=== PATIENT | female | born 1980 | race Caucasian/White ===

== ENCOUNTER 2021-09-08 17:58 | Inpatient (IN) ==
[2021-09-08 18:46] LABS: Basophils # 0.1 K/mcL (0.0-0.2); Basophils % 0.4 %; Eosinophils # 0.2 K/mcL (0.0-0.6); Eosinophils % 1.5 %; Hematocrit 44.6 % (35.3-44.9); Immature Granulocytes % 0.4 % (0-4); Lymphocytes # 2.4 K/mcL (0.6-4.6); Lymphocytes % 20.4 %; Mean Corpuscular HGB Conc 31.4 g/dL (31.6-35.5); Mean Corpuscular Hemoglobin 26.5 pg (28.0-33.3); Mean Corpuscular Volume 84.3 fL (83.0-100.0); Mean Platelet Volume 9.6 fL (9.4-12.4); Monocytes # 0.5 K/mcL (0.0-1.3); Monocytes % 4.4 %; Neutrophils # 8.5 K/mcL (1.6-8.9); Platelet Count 375 K/mcL (140-400); Red Blood Count 5.29 M/mcL (3.82-4.97); Red Cell Distribution Width 15.8 % (11.5-14.5); Segmented Neutrophils % 72.9 %; White Blood Count 11.7 K/mcL (4.3-11.1)
[2021-09-08 19:01] LABS: Bacteria,Urine Few per hpf (None-Few); Bilirubin,Urine Negative (Negative); Blood,Urine Trace (Negative); Clarity,Urine Clear (Clear); Color,Urine Colorless (Yellow); Glucose,Urine (UA) Normal (Normal); Ketones,Urine Negative (Negative); Leukocyte Esterase,Urine Negative (Negative); Nitrite,Urine Negative (Negative); PH,Urine 6.5 pH Units (5.0-8.0); Protein,Urine Negative (Neg-Trace); RBC,Urine 0-3 per hpf (0-3); Specific Gravity,Urine 1.009 (1.010-1.025); Squamous Epithelial Cell,Urine Few per hpf (None-Few); Urobilinogen,Urine Normal (Normal); WBC,Urine 0-3 per hpf (0-3)
[2021-09-08 19:25] LABS: Amphetamine Screen,Urine Negative ng/mL (Cutoff=1000); Barbiturate Screen,Urine Negative ng/mL (Cutoff=200)
[2021-09-08 19:26] LABS: Benzodiazepines Screen,Urine Negative ng/mL (Cutoff=300); Cannabinoid Screen,Urine Negative ng/mL (Cutoff = 50); Cocaine Screen,Urine Negative ng/mL (Cutoff= 300); Opiate Screen,Urine Negative ng/mL (Cutoff=300); Phencyclidine Screen,Urine Negative ng/mL (Cutoff=25)
[2021-09-08 19:34] LABS: Acetaminophen < 10 mcg/mL (10-20); BUN/Creatinine Ratio 4 (6-26); Blood Urea Nitrogen 3 mg/dL (6-20); Calcium 9.7 mg/dL (8.6-10.3); Carbon Dioxide 26 mEq/L (23-29); Chloride 102 mEq/L (98-107); Chol/HDL Ratio 4.1 (0-4.9); Cholesterol 212 mg/dL (< 200); Glucose 100 mg/dL (70-105); HDL Cholesterol 52 mg/dL (40-59); Osmolality,Calculated 281 (280-300); Potassium 3.2 mEq/L (3.5-5.1); Salicylate < 2.5 mg/dL (15.0-30.0); Sodium 137 mEq/L (136-145); eGFR For African Americans > 60 (> 60); eGFR For Non-African Americans > 60 (> 60)
[2021-09-08 19:35] LABS: Estimated Average Glucose 123 mg/dl; Hemoglobin A1C 5.9 %
[2021-09-08 20:43] LABS: Ethanol < 10 mg/dL (Less than 10); LDL Cholesterol,Calculated 131 mg/dL (< 100); Triglycerides 144 mg/dL (< 150)
[2021-09-09 00:20] LABS: Influenza A PCR Negative (Negative); Influenza B PCR Negative (Negative); Resp. Syncytial Virus PCR Negative (Negative); SARS-CoV-2 by PCR (In House) Negative (Negative)
[2021-09-09] MEDS ORDERED: *HR* LORazepam 2 MG/ML VIAL IM PRN (02:35)
[2021-09-09] MEDS ORDERED: haloperidoL 5 MG TABLET PO PRN (02:35)
[2021-09-09] MEDS ORDERED: hydrOXYzine pamoate 25 MG CAPSULE PO PRN (02:35)
[2021-09-09] MEDS ORDERED: Haloperidol Lactate 5 MG/ML VIAL IM PRN (02:35)
[2021-09-09] MEDS ORDERED: traZODone 50 MG TABLET PO PRN (02:35)
[2021-09-09] MEDS ORDERED: *HR* LORazepam 1 MG TABLET PO PRN (02:35)
[2021-09-09] MEDS: OXcarbazepine 150 MG TABLET PO SCH ×2 (09:58→20:49)
[2021-09-09] MEDS: hydrOXYzine pamoate 25 MG CAPSULE PO SCH ×2 (09:58→20:49)
[2021-09-09] MEDS: traZODone 50 MG TABLET PO SCH (09:58)
[2021-09-09] MEDS: Orphenadrine 100 MG TABLET.ER PO SCH (10:54)
[2021-09-09] MEDS: Nicotine 21 MG PATCH.TD24 TD SCH (10:54)
[2021-09-09] MEDS: ARIPiprazole 10 MG TABLET PO SCH (10:54)
[2021-09-09] MEDS: Furosemide 20 MG TABLET PO SCH (10:55)
[2021-09-09] MEDS ORDERED: MOM Conc 10 ML UD.LIQ PO PRN (11:28)
[2021-09-09] MEDS ORDERED: Mag Hydrox/Al Hydrox/Simeth 30 ML UDC PO PRN (11:28)
[2021-09-09] MEDS: *HR* Metformin 500 MG TABLET PO SCH (16:22)
[2021-09-09] MEDS ORDERED: Topiramate 25 MG TABLET PO SCH (21:00)
[2021-09-10] MEDS: *HR* Metformin 500 MG TABLET PO SCH (08:28)
[2021-09-10] MEDS: traZODone 50 MG TABLET PO SCH (08:28)
[2021-09-10] MEDS: OXcarbazepine 150 MG TABLET PO SCH (08:28)
[2021-09-10] MEDS: Furosemide 20 MG TABLET PO SCH (08:29)
[2021-09-10] MEDS: ARIPiprazole 10 MG TABLET PO SCH (08:29)
[2021-09-10] MEDS: Orphenadrine 100 MG TABLET.ER PO SCH (08:29)
[2021-09-10] MEDS: hydrOXYzine pamoate 25 MG CAPSULE PO SCH (08:29)
[2021-09-10] MEDS: Nicotine 21 MG PATCH.TD24 TD SCH (08:29)
[2021-09-10 09:04] VITALS: BP 121/86; PULSE 87; TEMP 98; O2SAT 95
== END 2021-09-10 13:05 | disposition home or self-care (01) | DRG 885 ==
LOC: EMEROOARM 17:58 → 1ANU 09-09 03:26
PROVIDERS: ADMIT Psychiatry & Neurology Psychiatry; ATTEND Psychiatry & Neurology Psychiatry

== ENCOUNTER 2021-10-26 18:37 | Observation (INO) ==
[2021-10-26] MEDS ORDERED: Ondansetron 4 MG/2 ML VIAL IVP PRN (21:13)
[2021-10-26] MEDS ORDERED: Naloxone 0.4 MG/ML INJ IVP PRN (21:13)
[2021-10-26] MEDS ORDERED: Nitroglycerin 0.4 MG TAB.SUBL SL PRN (21:15)
[2021-10-27] MEDS ORDERED: Perflutren Lipid Microsphere 1.3 ML in 0.9 % Sodium Chloride 8.7 ML IVP PRN (00:56)
[2021-10-27] MEDS ORDERED: Acetaminophen 325 MG TABLET PO PRN (00:58)
[2021-10-27] MEDS ORDERED: Furosemide 20 MG TABLET PO PRN (01:16)
[2021-10-27] MEDS ORDERED: hydrOXYzine pamoate 25 MG CAPSULE PO PRN (01:16)
[2021-10-27] MEDS ORDERED: Dextrose Gel 15 GM/37.5 ML TUBE PO PRN ×2 (02:03)
[2021-10-27] MEDS ORDERED: D5% in Water 1,000 ML IVC PRN (02:03)
[2021-10-27] MEDS ORDERED: *HR* Dextrose 50 % in Water (Syg) 50 ML SYRINGE IVP PRN (02:03)
[2021-10-27 02:44] LABS: Basophils % 0.5 %; Eosinophils # 0.2 K/mcL (0.0-0.6); Eosinophils % 2.9 %; Hematocrit 41.5 % (35.3-44.9); Hemoglobin 12.7 g/dL (11.5-15.4); Immature Granulocytes % 0.3 % (0-4); Lymphocytes # 2.5 K/mcL (0.6-4.6); Lymphocytes % 31.6 %; Mean Corpuscular HGB Conc 30.6 g/dL (31.6-35.5); Mean Corpuscular Hemoglobin 26.2 pg (28.0-33.3); Mean Corpuscular Volume 85.7 fL (83.0-100.0); Monocytes # 0.4 K/mcL (0.0-1.3); Monocytes % 5.4 %; Neutrophils # 4.7 K/mcL (1.6-8.9); Platelet Count 348 K/mcL (140-400); Red Blood Count 4.84 M/mcL (3.82-4.97); Red Cell Distribution Width 16.3 % (11.5-14.5); Segmented Neutrophils % 59.3 %; White Blood Count 7.9 K/mcL (4.3-11.1)
[2021-10-27 02:56] LABS: Cholesterol 149 mg/dL (< 200); HDL Cholesterol 49 mg/dL (40-59); LDL Cholesterol,Calculated 76 mg/dL (< 100); Magnesium 1.9 mg/dL (1.6-2.6); Triglycerides 120 mg/dL (< 150); Troponin I < 0.03 ng/mL (< 0.04)
[2021-10-27 02:57] LABS: Alanine Aminotransferase 11 Units/L (7-52); Albumin 3.8 g/dL (3.5-5.7); Albumin/Globulin Ratio 1.7 (1.1-2.2); Alkaline Phosphatase 89 Units/L (34-104); Aspartate Amino Transferase 9 Units/L (13-39); BUN/Creatinine Ratio 13 (6-26); Bilirubin,Total 0.3 mg/dL (0.3-1.0); Blood Urea Nitrogen 9 mg/dL (6-20); Calcium 9.2 mg/dL (8.6-10.3); Carbon Dioxide 26 mEq/L (23-29); Chloride 106 mEq/L (98-107); Globulin 2.2 g/dL (2.4-3.5); Glucose 97 mg/dL (70-105); Osmolality,Calculated 287 (280-300); Potassium 3.4 mEq/L (3.5-5.1); Sodium 139 mEq/L (136-145); eGFR For African Americans > 60 (> 60); eGFR For Non-African Americans > 60 (> 60)
[2021-10-27 03:26] LABS: Estimated Average Glucose 120 mg/dl; Hemoglobin A1C 5.8 %
[2021-10-27] MEDS: Insulin LISPRO 300 UNITS/3 ML VIAL SUBQ SCH ×2 (05:19→11:51)
[2021-10-27] MEDS ORDERED: *HR* Heparin 5,000 UNIT/ML VIAL SQ SCH (06:00)
[2021-10-27] MEDS ORDERED: Regadenoson 0.4 MG/5 ML SYRINGE IVP ONE (06:34)
[2021-10-27] MEDS ORDERED: Aspirin Enteric Coated 81 MG Tablet PO SCH (09:00)
[2021-10-27] MEDS ORDERED: Pregabalin 25 MG CAPSULE PO SCH (09:00)
[2021-10-27 11:46] VITALS: BP 135/86; PULSE 97; TEMP 97.8; O2SAT 96
[2021-10-27] MEDS ORDERED: Potassium Chloride Elixir 20 MEQ/15 ML UDC PO ONE (12:25)
== END 2021-10-27 14:29 | disposition home or self-care (01) ==
LOC: 3BNU → SUATTDRO 20:54
PROVIDERS: ADMIT Pharmacist; ATTEND Internal Medicine

== ENCOUNTER 2022-04-30 22:44 | Inpatient (IN) ==
[2022-05-01 17:50] LABS: Influenza A PCR Negative (Negative); Influenza B PCR Negative (Negative); Resp. Syncytial Virus PCR Negative (Negative); SARS-CoV-2 by PCR (In House) Negative (Negative)
[2022-05-01] MEDS ORDERED: haloperidoL 5 MG TABLET PO PRN (18:05)
[2022-05-01] MEDS ORDERED: *HR* LORazepam 1 MG TABLET PO PRN (18:05)
[2022-05-01] MEDS ORDERED: Haloperidol Lactate 5 MG/ML VIAL IM PRN (18:05)
[2022-05-01] MEDS ORDERED: *HR* LORazepam 2 MG/ML VIAL IM PRN (18:05)
[2022-05-01] MEDS: Ibuprofen 400 MG TABLET PO PRN (21:03)
[2022-05-01] MEDS: OXcarbazepine 150 MG TABLET PO SCH (21:04)
[2022-05-01] MEDS: traZODone 50 MG TABLET PO SCH (21:05)
[2022-05-01] MEDS: Topiramate 25 MG TABLET PO SCH (21:05)
[2022-05-01] MEDS: Psyllium 1 PACKET POWD.PACK PO SCH (21:39)
[2022-05-01] MEDS: Pregabalin 25 MG CAPSULE PO SCH (23:14)
[2022-05-02] MEDS ORDERED: Mag Hydrox/Al Hydrox/Simeth 30 ML UDC PO PRN (08:46)
[2022-05-02] MEDS ORDERED: MOM Conc 10 ML UD.LIQ PO PRN (08:46)
[2022-05-02] MEDS: Pregabalin 25 MG CAPSULE PO SCH ×2 (08:50→20:52)
[2022-05-02] MEDS: OXcarbazepine 150 MG TABLET PO SCH (08:50)
[2022-05-02] MEDS: Furosemide 20 MG TABLET PO SCH (08:50)
[2022-05-02] MEDS: ARIPiprazole 10 MG TABLET PO SCH (08:50)
[2022-05-02] MEDS: *HR* Metformin 500 MG TABLET PO SCH ×2 (08:50→16:02)
[2022-05-02] MEDS ORDERED: Loratadine 10 MG TABLET PO SCH (09:00)
[2022-05-02] MEDS: Nicotine 14 MG PATCH.TD24 TD SCH (09:28)
[2022-05-02] MEDS: Psyllium 1 PACKET POWD.PACK PO SCH ×2 (09:29→20:51)
[2022-05-02] MEDS ORDERED: clonazePAM 0.5 MG TABLET PO PRN (13:51)
[2022-05-02] MEDS: Ibuprofen 400 MG TABLET PO PRN ×2 (16:02→20:53)
[2022-05-02] MEDS: traZODone 50 MG TABLET PO SCH (20:52)
[2022-05-02] MEDS: Topiramate 25 MG TABLET PO SCH (20:52)
[2022-05-02] MEDS ORDERED: OXcarbazepine 150 MG TABLET PO SCH (21:00)
[2022-05-03] MEDS: Nicotine 14 MG PATCH.TD24 TD SCH (08:30)
[2022-05-03] MEDS: Psyllium 1 PACKET POWD.PACK PO SCH (08:32)
[2022-05-03] MEDS: ARIPiprazole 10 MG TABLET PO SCH (08:35)
[2022-05-03] MEDS: Pregabalin 25 MG CAPSULE PO SCH (08:35)
[2022-05-03] MEDS: *HR* Metformin 500 MG TABLET PO SCH (08:36)
[2022-05-03] MEDS: Furosemide 20 MG TABLET PO SCH (08:36)
[2022-05-03] MEDS ORDERED: OXcarbazepine 150 MG TABLET PO SCH (09:00)
[2022-05-03 09:29] VITALS: BP 119/78; PULSE 72; TEMP 97; O2SAT 98
[2022-05-06] MEDS ORDERED: Ergocalciferol (VIT D2) 50,000 UNIT (1.25MG) CAP PO SCH (18:12)
== END 2022-05-03 11:18 | disposition home or self-care (01) | DRG 885 ==
LOC: EMEROOARM 22:44 → 1ANU 05-01 18:00
PROVIDERS: ADMIT Psychiatry & Neurology Psychiatry; ATTEND Psychiatry & Neurology Psychiatry